=== PATIENT | female | born 1945 | race Asian ===

== ENCOUNTER 2018-09-18 01:03 | Emergency (ER) | payer BC ==
[~2018-09-18] VITALS: Ht 152.4 cm; Wt 55.8 kg
[2018-09-18 01:05] VITALS: BP_SYST 117
--- NOTE | 2018-09-18 01:05 | NUR ---
Pt biba to bed 1 for evaluation
--- NOTE | 2018-09-18 01:10 | NUR ---
Patient AOx4, brought to ER for complaint of left shoulder pain that radiates to the left forearm s/p mechanical fall. Pain worsens with movement. Patient states she tripped and fell onto her left side. Discoloration noted to lateral-back. Patient states she takes Benadryl to aid sleep. -KO.
--- NOTE | 2018-09-18 01:20 | NUR ---
ER at bedside examining patient.
[2018-09-18] MEDS ORDERED: LIP10 PO (01:24)
[2018-09-18] MEDS ORDERED: AMLO10TA88 PO (01:24)
[2018-09-18] MEDS ORDERED: TOLT1TAB2 PO (01:25)
[2018-09-18] MEDS ORDERED: LEVO75TA7 PO (01:27)
[2018-09-18] MEDS ORDERED: DENO60DI SQ (01:28)
[2018-09-18] MEDS ORDERED: NACL 0.9% 1,000 ML IV ONE (01:29)
[2018-09-18] MEDS ORDERED: CALC-995 PO (01:29)
[2018-09-18] MEDS ORDERED: DIPHENHYDRAMINE INJ 50 MG/ML VIAL IVP ONE (01:30)
[2018-09-18] MEDS ORDERED: OMEG-82 PO (01:30)
[2018-09-18] MEDS ORDERED: MORPHINE 4 MG/ML INJ. SYRINGE IVP ONE ×2 (01:30→02:15)
[2018-09-18] MEDS ORDERED: CRAN450C PO (01:31)
[2018-09-18] MEDS ORDERED: CHOL200075 PO (01:34)
--- NOTE | 2018-09-18 02:00 | NUR ---
No adverse reactions noted after medication administration. Will continue to monitor.
[2018-09-18] MEDS ORDERED: ONDANSETRON HCL 4 MG/2 ML VIAL IVP ONE (02:15)
[2018-09-18] MEDS ORDERED: fentaNYL CITRATE/PF 100 MCG/2 ML AMP IVP ONE (03:15)
--- NOTE | 2018-09-18 03:20 | NUR ---
Medication was given, pt tolerated well. No adverse reaction, will continue to monitor.
--- NOTE | 2018-09-18 04:45 | NUR ---
Patient resting comfortably. No acute distress noted at this time.
[2018-09-18 06:15] VITALS: BP_SYST 126
--- NOTE | 2018-09-18 06:15 | NUR ---
Patient given written and verbal discharge instructions and verbalizes understanding. ER MD discussed with patient the results and treatment provided. Patient in stable condition. ID arm band removed. IV catheter removed intact and dressing applied, no active bleeding. Rx of [place] 5/325 given. Patient educated on pain management and to follow up with PMD. Pain Scale 2/10 tolerable to patient. Opportunity for questions provided and answered. Medication side effect fact sheet provided.
== END 2018-09-18 06:15 | disposition home or self-care (01) ==
LOC: SED 01:03
DX: S42.352A Displaced comminuted fracture of shaft of humerus, left arm, initial encounter for closed fracture (principal); Z79.899 Other long term (current) drug therapy; W01.0XXA Fall on same level from slipping, tripping and stumbling without subsequent striking against object, initial encounter; Y93.89 Activity, other specified; Y92.89 Other specified places as the place of occurrence of the external cause; Y99.8 Other external cause status
CPT/HCPCS: 73060; 96374; 96375; 99283; J1200; J2270; J2405; J3010; J7030